=== PATIENT | female | born 1980 | race Caucasian/White ===

== ENCOUNTER 2016-11-16 19:08 | Emergency (ER) | payer BC ==
--- NOTE | 2016-11-16 19:20 | EDM.PDOC ---
ED HPI GENERAL MEDICAL PROBLEM - General Chief Complaint: General Stated Complaint: POSSIBLE BLOOD CLOTS Time Seen by Provider: 11/16/16 19:17 - History of Present Illness INITIAL COMMENTS - FREE TEXT/NARRATIVE: HISTORY AND PHYSICAL: History of present illness: Patient 35-year-old white female history of multiple sclerosis who is on immunosuppressive therapy for recent exacerbation were sent to concern of a tender lymph node right precervical area no fever chills nausea vomiting cough shortness of breath or other complaints Review of systems: As per history of present illness and below otherwise all systems reviewed and negative. Past medical history: As per history of present illness and as reviewed below otherwise noncontributory. Surgical history: As per history of present illness and as reviewed below otherwise noncontributory. Social history: No reported history of drug or alcohol abuse. Family history: As per history of present illness and as reviewed below otherwise noncontributory. Physical exam: HEENT: Atraumatic, normocephalic, pupils reactive, negative for conjunctival pallor or scleral icterus, mucous membranes moist, throat clear, neck supple, nontender, trachea midline. Patient does have a precervical node palpable both on the right and left right slightly more tender both nodes are approximately 2- 2-1/2 cm Lungs: Clear to auscultation, breath sounds equal bilaterally, chest nontender. Heart: S1S2, regular, negative for clicks, rubs, or JVD. Abdomen: Soft, nondistended, nontender. Negative for masses or hepatosplenomegaly. Negative for costovertebral tenderness. Genitourinary: Deferred. Rectal: Deferred. Extremities: Atraumatic, Neuro: Awake, alert, oriented. Nonfocal, baseline per patient Diagnostics: To be determined Therapeutics: To be determined Impression: #1 precervical lymphadenitis #2 history of multiple sclerosis Definitive disposition and diagnosis as appropriate pending reevaluation and review of above. right neck area Pain Score (Numeric/FACES): 3 - Related Data Allergies Allergy/AdvReac Type Severity Reaction Status Date / Time ciprofloxacin [From Cipro] Allergy Vomiting Verified 11/16/16 19:10 codeine Allergy Hives Verified 11/16/16 19:10 morphine Allergy Hives Verified 11/16/16 19:10 neomycin Allergy Blisters Verified 11/16/16 19:10 Penicillins Allergy Hives Verified 11/16/16 19:10 Home Meds: Home Meds Topiramate [Topamax] 75 mg PO DAILY 04/29/15 [History] Baclofen 20 mg PO TID 12/23/15 [History] Biotin 1 tab PO DAILY 12/23/15 [History] Calcium Carbonate [Calcium] 500 mg PO DAILY 12/23/15 [History] Cholecalciferol (Vitamin D3) [Vitamin D3] 1 tab.chew PO DAILY 12/23/15 [History] Cranberry 400 mg PO DAILY 12/23/15 [History] Phytonadione [Vitamin K] 300 mcg PO DAILY 12/23/15 [History] Temazepam [Restoril] 30 mg PO BEDTIME 12/23/15 [History] Alemtuzumab [Lemtrada] 12 mg IV DAY 11/16/16 [History] tiZANidine HCl [Zanaflex] 2 mg PO BID 11/16/16 [History] Past Medical History Other HEENT History: wears glasses/contacts Cardiovascular History: Reports: None Respiratory History: Reports: None Other OB/BYN History: Breast Augmentation Musculoskeletal History: Reports: None Neurological History: Reports: Migraines, MS Psychiatric History: Reports: None Endocrine/Metabolic History: Reports: None Hematologic History: Reports: None Immunologic History: Reports: None Oncologic (Cancer) History: Reports: None Dermatologic History: Reports: None - Past Surgical History Other Female Surgeries/Procedures: laparoscopy x3, Social & Family History - Tobacco Use Smoking Status *Q: Former Smoker - Recreational Drug Use Recreational Drug Use: No Drug Use in Last 12 Months: No ED ROS GENERAL - Review of Systems Review Of Systems: ROS reveals no pertinent complaints other than HPI. ED EXAM, GENERAL - Physical Exam Exam: See Below (See dictation) Course - Vital Signs Last Recorded V/S: Last Vital Signs Temp 36.3 C 11/16/16 19:11 Pulse 69 11/16/16 19:11 Resp 16 11/16/16 19:11 BP 132/82 11/16/16 19:11 Pulse Ox 99 11/16/16 19:11 - Orders/Labs/Meds Orders: Active Orders 24 hr Category Date Time Status Chest 2V [CR] Stat Exams 11/16/16 19:21 Taken COMPREHENSIVE METABOLIC PN,CMP [CHEM] Stat Lab 11/16/16 19:27 Received Labs: Laboratory Tests 11/16/16 Range/Units 19:27 WBC 3.93 L (4.0-11.0) K/uL RBC 4.48 (4.30-5.90) M/uL Hgb 13.7 (12.0-16.0) g/dL Hct 40.2 (36.0-46.0) % MCV 89.7 (80.0-98.0) fL MCH 30.6 (27.0-32.0) pg MCHC 34.1 (31.0-37.0) g/dL RDW Std Deviation 43.7 (28.0-62.0) fl RDW Coeff of Agustin 13 (11.0-15.0) % Plt Count 228 (150-400) K/uL MPV 9.80 (7.40-12.00) fL Neut % (Auto) 94.7 H (48.0-80.0) % Lymph % (Auto) 2.0 L (16.0-40.0) % [place] % (Auto) 3.3 (0.0-15.0) % Eos % (Auto) 0.0 (0.0-7.0) % Baso % (Auto) 0.0 (0.0-1.5) % Neut # 3.7 (1.4-5.7) K/uL Lymph # 0.1 L (0.6-2.4) K/uL [place] # 0.1 (0.0-0.8) K/uL Eos # 0.0 (0.0-0.7) K/uL Baso # 0.0 (0.0-0.1) K/uL Nucleated RBC % 0.0 /100WBC Nucleated RBCs # 0 K/uL Departure - Departure Time of Disposition: 19:55 Disposition: Home, Self-Care 01 Condition: good Clinical Impression: Cervical adenitis Forms: ED Department Discharge Additional Instructions: The following information is given to patients seen in the emergency department who are being discharged to home. This information is to outline your options for follow-up care. We provide all patients seen in our emergency department with a follow-up referral. The need for follow-up, as well as the timing and circumstances, are variable depending upon the specifics of your emergency department visit. If you don't have a primary care physician on staff, we will provide you with a referral. We always advise you to contact your personal physician following an emergency department visit to inform them of the circumstance of the visit and for follow-up with them and/or the need for any referrals to a consulting specialist. The emergency department will also refer you to a specialist when appropriate. This referral assures that you have the opportunity for followup care with a specialist. All of these measure are taken in an effort to provide you with optimal care, which includes your followup. Under all circumstances we always encourage you to contact your private physician who remains a resource for coordinating your care. When calling for followup care, please make the office aware that this follow-up is from your recent emergency room visit. If for any reason you are refused follow-up, please contact the [facility] emergency department at and asked to speak to the emergency department charge nurse. Keflex as prescribed Motrin or Tylenol as directed continue current medications follow up private medical doctor one to 2 days and return as needed as discussed - My Orders Last 24 Hours: My Active Orders 11/16/16 19:21 Chest 2V [CR] Stat 11/16/16 19:27 COMPREHENSIVE METABOLIC PN,CMP [CHEM] Stat - Assessment/Plan Last 24 Hours: My Active Orders 11/16/16 19:21 Chest 2V [CR] Stat 11/16/16 19:27 COMPREHENSIVE METABOLIC PN,CMP [CHEM] Stat
[2016-11-16 19:21] VITALS: BP 132/82
[2016-11-16 19:59] LABS: CHLORIDE,CL 107 mmol/L (98-110); SODIUM,NA 141 mmol/L (136-146)
--- NOTE | 2016-11-19 16:10 | CR ---
EXAM DATE: 11/16/16 PATIENT'S AGE: 35 Patient: ARMANDO KATZ Facility: [place], [place] Site . Site : 1980 Study: XRay Chest [id number]/3/2017 7:41:04 PM Ordering Physician: Sweta Mejia Final Report: INDICATION: possible blood clot FINDINGS: PA and lateral chest x-rays show a normal cardiac silhouette. The lungs show no focal pulmonary opacities. Sharp pleural margins. No pneumothorax. IMPRESSION: No evidence of acute pulmonary abnormalities. Dictated by Juan Donahue MD @ 11/16/2016 7:47:10 PM Dictated by: Juan Donahue MD @ 11/16/2016 19:47:21 (Electronic Signature) Report Signed by Proxy and Original Signed Document filed in the Medical Record. MTDD
== END 2016-11-16 20:22 | disposition home or self-care (01) ==
LOC: MW.ED 19:08
DX: I88.9 Nonspecific lymphadenitis, unspecified (principal); G35 Multiple sclerosis; Z88.5 Allergy status to narcotic agent; Z88.6 Allergy status to analgesic agent; Z88.0 Allergy status to penicillin; Z79.899 Other long term (current) drug therapy; Z87.891 Personal history of nicotine dependence
CPT/HCPCS: 36415; 71020; 71020-26; 80053; 85025; 99283